=== PATIENT | female | born 1965 | race Caucasian/White ===

== ENCOUNTER 2025-02-19 20:42 | Emergency (ER) | payer MEDICAID ==
[~2025-02-19] VITALS: Ht 152.4 cm; Wt 133.4 kg
[2025-02-19] MEDS ORDERED: METF-414 MT (20:50)
[2025-02-19] MEDS ORDERED: OMEP20CA14 MT (20:50)
[2025-02-19] MEDS ORDERED: ATOR10TA69 MT (20:50)
[2025-02-19] MEDS ORDERED: LOSA50TA41 MT (20:50)
[2025-02-19 20:51] VITALS: O2SAT 99
[2025-02-19] MEDS: MECLIZINE 25MG TABLET PO ONE (22:12)
[2025-02-19 22:26] LABS: BASOPHILS % 0.6 % (0.0-2.0); EOSINOPHILS % 1.1 % (0.0-5.0); HEMATOCRIT. 44.2 % (36.0-48.0); HEMOGLOBIN. 14.6 g/dL (12.0-16.0); LYMPHOCYTES % 21.9 % (20.0-50.0); MEAN PLATELET VOLUME 7.8 fl (7.4-10.4); MONOCYTES % 7.2 % (2.0-8.0); NEUTROPHILS % 69.2 % (40.0-76.0); PLATELET 383 x1000/uL (130-400); RED BLOOD CELL COUNT 4.97 mill/uL (4.2-5.4); RED CELL DISTRIBUTION WIDTH 14.5 % (11.6-14.6)
[2025-02-19 22:31] LABS: CREATININE 0.7 mg/dL (0.6-1.0); UREA NITROGEN BLOOD 8 mg/dL (9-23)
[2025-02-19 22:33] LABS: ASPARTATE AMINOTRANSFERASE 24 IU/L (<34); BILIRUBIN DIRECT 0.2 mg/dL (<=3.0); TROPONIN I HIGH SENSITIVITY < 4 ng/L (3.0-34)
[2025-02-19 22:34] LABS: BILIRUBIN TOTAL 0.5 mg/dL (0.1-1.0); INR 1.0; PROTEIN TOTAL 7.0 g/dL (6.0-8.3)
[2025-02-19] MEDS ORDERED: MECL-299 MT (23:40)
[2025-02-20 00:02] VITALS: BP 130/88; PULSE 80; RESP 20; TEMP 36.7; O2SAT 97
== END 2025-02-20 00:04 | disposition home or self-care (01) ==
LOC: ER 20:42
DX: R42 Dizziness and giddiness (principal); R07.89 Other chest pain; E11.9 Type 2 diabetes mellitus without complications; R06.02 Shortness of breath; I10 Essential (primary) hypertension; Z79.899 Other long term (current) drug therapy
CPT/HCPCS: 99285; 70450; 71045; 80076; 80048; 83880; 83735; 85025; 85610; 85730; 84484; 36415; 93005; J8597